=== PATIENT | female | born 1955 | race Asian ===

== ENCOUNTER → 2016-07-27 | Outpatient (CLI) | payer OTHER ==
[~2016-07-27] MED LIST: ALLOPURINOL; HYDROCHLORTHIAZIDE; LIPITOR; LOSARTAN; NORVASC; PREDNISONE
== END | disposition home or self-care (01) ==
LOC: RADMN 08:22
PROVIDERS: ATTEND Internal Medicine Nephrology
DX: N28.89 Other specified disorders of kidney and ureter (principal)
CPT/HCPCS: 74176

== ENCOUNTER 2017-07-22 10:40 | Inpatient (IN) | payer OTHER ==
[~2017-07-22] VITALS: Ht 154.9 cm; Wt 71.4 kg
[2017-07-22] MEDS ORDERED: RANI150T7 PO (10:48)
[2017-07-22] MEDS ORDERED: ACYC200C PO (10:48)
[2017-07-22] MEDS ORDERED: ASPI81 PO (10:48)
[2017-07-22] MEDS ORDERED: AMLO-512 PO (10:48)
[2017-07-22] MEDS ORDERED: PRED5 PO (10:48)
[2017-07-22] MEDS ORDERED: CEPH250 PO (10:48)
[2017-07-22] MEDS ORDERED: LABE100 PO (10:48)
[2017-07-22] MEDS ORDERED: ACETAMINOPHEN 325 MG TABLET PO ONE (11:30)
[2017-07-22 12:04] LABS: APPEARANCE,URINE CLEAR (CLEAR); BILIRUBIN,URINE NEGATIVE (NEGATIVE); GLUCOSE, URINE (UA) 100 mg/dL (NEGATIVE); KETONES,URINE NEGATIVE (NEGATIVE); LEUKOCYTE ESTERASE ,URINE NEGATIVE (NEGATIVE); NITRATE,URINE NEGATIVE (NEGATIVE); OCCULT BLOOD,URINE TRACE (NEGATIVE); PH,URINE 5.5 (5.0-8.0); PROTEIN,URINE SEE CONFIRM (NEGATIVE); UROBILINOGEN,URINE 0.2 mg/dL (<=1.0)
[2017-07-22 12:22] LABS: SULFOSALICYLIC ACID,URINE 3+ (Negative)
[2017-07-22 12:24] LABS: BACTERIA,URINE Rare /HPF (None Seen); MUCUS,URINE Rare LPF (None Seen); RBC,URINE 0-2 /HPF (0-2); SQUAMOUS EPITHELIAL CELL,UR Few /LPF (None Seen); WBC,URINE 0-2 /HPF (0-5)
[2017-07-22 12:25] LABS: HYALINE CASTS, URINE 0-2 /LPF (None Seen)
[2017-07-22] MEDS ORDERED: LEVOFLOXACIN 250 MG TABLET PO ONE (13:30)
[2017-07-22 13:52] LABS: BASOPHILS % (AUTO) 0.9 % (0.0-2.0); EOSINOPHILS % (AUTO) 0.5 % (1.0-6.0); HEMATOCRIT 31.8 % (36-46); HEMOGLOBIN 10.5 g/dL (12.0-16.0); LYMPHOCYTES # (AUTO) 0.9 K/uL (1.0-4.8); LYMPHOCYTES % (AUTO) 9.9 % (22.0-44.0); MEAN CORPUSCULAR HEMOGLOBIN 29.6 pg (26.0-34.0); MEAN CORPUSCULAR HGB CONC 32.9 G/dL (31.0-37.0); MEAN CORPUSCULAR VOLUME 90 fL (80-100); MONOCYTES # (AUTO) 0.1 K/uL (0.1-1.0); MONOCYTES % (AUTO) 1.1 % (2.0-9.0); NEUTROPHILS # (AUTO) 7.9 K/uL (1.8-7.7); PLATELET COUNT (AUTO) 186 K/uL (150-450); RED BLOOD CELL COUNT(AUTO) 3.54 MIL/uL (4.00-5.20); RED CELL DISTRIBUTION WIDTH 14.4 % (11.5-14.5)
[2017-07-22 13:53] LABS: NEUTROPHILS % (AUTO) 87.6 % (40.0-70.0)
[2017-07-22] MEDS ORDERED: CAPSAICIN 0.025% 60 GM CREAM TP ONE (14:15)
[2017-07-22 14:31] LABS: ANION GAP 19 mmol/L (8-16); CALCIUM, TOTAL 8.9 mg/dL (8.8-10.5); CARBON DIOXIDE 15 mmol/L (22-29); CHLORIDE 108 mmol/L (98-107); CREATININE 6.49 mg/dL (0.60-1.30); GLOMERULAR FILTR. RATE CALC 6 mL/min (>60); GLUCOSE,RANDOM 115 mg/dL (70-110); POTASSIUM 5.2 mmol/L (3.5-5.1); SODIUM SERUM 142 mmol/L (136-145); UREA NITROGEN, BLOOD 79 mg/dL (7-18)
[2017-07-22 14:37] LABS: ALANINE AMINOTRANSFERASE 27 U/L (12-78); ALBUMIN 3.4 g/dL (3.4-5.0); ALKALINE PHOSPHATASE 95 U/L (46-116); ASPARTATE AMINOTRANSFERASE < 5 U/L (15-37); BILIRUBIN,TOTAL 0.6 mg/dL (0.1-1.0); TOTAL PROTEIN, SERUM 6.7 g/dL (6.4-8.2)
[2017-07-22] MEDS ORDERED: ACETAMINOPHEN 325 MG TABLET PO PRN (16:30)
[2017-07-22] MEDS ORDERED: 0.9% SODIUM CHLORIDE 10 ML SYRINGE IVP PRN ×2 (16:30→19:30)
[2017-07-22] MEDS ORDERED: ONDANSETRON HCL 4 MG/2 ML VIAL IVP PRN ×2 (16:30→19:30)
[2017-07-22 18:27] VITALS: BP 134/67
[2017-07-22 19:27] VITALS: BP 166/81
[2017-07-22] MEDS ORDERED: BISACODYL 10 MG RECTAL RECTAL SUPPOSITORY PR PRN (19:30)
[2017-07-22] MEDS ORDERED: MAGNESIUM HYDROXIDE SUSPENSION 30 ML UDCUP PO PRN (19:30)
[2017-07-22] MEDS ORDERED: IPRATROPIUM BROMIDE 0.5 MG/2.5 ML NEB SOLUTION NEB PRN (19:30)
[2017-07-22] MEDS ORDERED: ALBUTEROL SULFATE 2.5 MG/0.5 ML NEB SOLUTION NEB PRN (19:30)
[2017-07-22] MEDS ORDERED: BRIM15DR2 OU (19:35)
[2017-07-22] MEDS ORDERED: CALC0.253 PO (19:35)
[2017-07-22] MEDS ORDERED: ATOR20TA65 PO (19:35)
[2017-07-22] MEDS: CALCITRIOL 0.25 MCG CAPSULE PO SCH ×2 (21:00→22:14)
[2017-07-22] MEDS ORDERED: HydrALAZINE HCL 20 MG/ML VIAL IVP PRN (21:00)
[2017-07-22] MEDS ORDERED: [UNRECOGNIZED DRUG - OTHER] CLINICAL ONE (21:30)
[2017-07-22] MEDS: ATORVASTATIN CALCIUM 20 MG TABLET PO SCH (22:10)
[2017-07-22] MEDS: HEPARIN SODIUM,PORCINE 5,000 UNITS/ML VIAL SQ SCH (22:14)
[2017-07-22] MEDS: BRIMONIDINE TARTRATE 0.1% 5 ML OPHTHALMIC SOLUTION OU SCH (22:15)
[2017-07-22] MEDS: ACYCLOVIR 800 MG TABLET PO SCH (22:36)
[2017-07-22 23:44] VITALS: BP 157/70
[2017-07-23 04:21] VITALS: BP 159/75
[2017-07-23 07:03] LABS: BASOPHILS % (AUTO) 0.4 % (0.0-2.0); EOSINOPHILS % (AUTO) 1.4 % (1.0-6.0); LYMPHOCYTES # (AUTO) 1.9 K/uL (1.0-4.8); LYMPHOCYTES % (AUTO) 23.6 % (22.0-44.0); MEAN CORPUSCULAR HGB CONC 33.4 G/dL (31.0-37.0); MEAN CORPUSCULAR VOLUME 90 fL (80-100); MONOCYTES # (AUTO) 0.8 K/uL (0.1-1.0); MONOCYTES % (AUTO) 9.8 % (2.0-9.0); NEUTROPHILS # (AUTO) 5.3 K/uL (1.8-7.7); NEUTROPHILS % (AUTO) 64.8 % (40.0-70.0); PLATELET COUNT (AUTO) 181 K/uL (150-450); RED BLOOD CELL COUNT(AUTO) 3.33 MIL/uL (4.00-5.20); RED CELL DISTRIBUTION WIDTH 14.3 % (11.5-14.5)
[2017-07-23 07:51] LABS: % IRON SATURATION 35.7 % (22-44)
[2017-07-23 07:53] LABS: ALBUMIN 3.2 g/dL (3.4-5.0); BILIRUBIN,TOTAL 0.6 mg/dL (0.1-1.0); CALCIUM, TOTAL 9.2 mg/dL (8.8-10.5); CREATININE 6.64 mg/dL (0.60-1.30); MAGNESIUM 1.9 mg/dL (1.80-2.40); PHOSPHORUS 6.7 mg/dL (2.5-4.9); POTASSIUM 4.1 mmol/L (3.5-5.1); TOTAL PROTEIN, SERUM 6.4 g/dL (6.4-8.2)
[2017-07-23 08:14] VITALS: BP 148/53
[2017-07-23] MEDS: HEPARIN SODIUM,PORCINE 5,000 UNITS/ML VIAL SQ SCH ×2 (09:00→20:24)
[2017-07-23] MEDS ORDERED: LABETALOL HCL 100 MG TABLET PO SCH (09:00)
[2017-07-23] MEDS: ASPIRIN 81 MG CHEWABLE TABLET PO SCH (09:00)
[2017-07-23] MEDS: AmLODIPine BESYLATE 10 MG TABLET PO SCH (10:41)
[2017-07-23] MEDS: ACETAMINOPHEN 325 MG TABLET PO PRN ×2 (10:41→20:24)
[2017-07-23] MEDS: PANTOPRAZOLE SODIUM 40 MG DR TABLET PO SCH (10:41)
[2017-07-23 11:35] VITALS: BP 148/69
[2017-07-23] MEDS ORDERED: OxyCODONE HCL/ACETAMINOPHEN 5-325 MG TABLET PO PRN (11:45)
[2017-07-23] MEDS ORDERED: LABETALOL HCL 100 MG TABLET PO ONE (12:00)
[2017-07-23] MEDS: CALCITRIOL 0.25 MCG CAPSULE PO SCH (12:46)
[2017-07-23] MEDS: PredniSONE 5 MG TABLET PO SCH (12:46)
[2017-07-23] MEDS ORDERED: *CLINICAL-RX DOSING [ENTER DRUG IN COMMENTS] CLINICAL ONE (13:00)
[2017-07-23] MEDS: ACYCLOVIR 800 MG TABLET PO SCH ×2 (13:33→20:23)
[2017-07-23] MEDS: BRIMONIDINE TARTRATE 0.1% 5 ML OPHTHALMIC SOLUTION OU SCH ×2 (13:46→20:23)
[2017-07-23 15:30] VITALS: BP 150/62
[2017-07-23] MEDS: CITRIC ACID/SODIUM CITRATE 30 ML SOLUTION UDCUP PO SCH ×2 (16:12→20:23)
[2017-07-23 20:17] VITALS: BP 155/68
[2017-07-23] MEDS: ATORVASTATIN CALCIUM 20 MG TABLET PO SCH (20:23)
[2017-07-23] MEDS: LABETALOL HCL 100 MG TABLET PO SCH (20:23)
[2017-07-23 23:56] VITALS: BP 145/57
[2017-07-24 05:52] VITALS: BP 158/76
[2017-07-24 07:07] VITALS: BP 149/65
[2017-07-24 07:26] LABS: CREATININE 6.35 mg/dL (0.60-1.30); MAGNESIUM 1.9 mg/dL (1.80-2.40); PHOSPHORUS 6.9 mg/dL (2.5-4.9); POTASSIUM 4.4 mmol/L (3.5-5.1)
[2017-07-24] MEDS: BRIMONIDINE TARTRATE 0.1% 5 ML OPHTHALMIC SOLUTION OU SCH ×2 (09:02→20:19)
[2017-07-24] MEDS: CALCITRIOL 0.25 MCG CAPSULE PO SCH (09:02)
[2017-07-24] MEDS: LABETALOL HCL 100 MG TABLET PO SCH ×2 (09:02→20:19)
[2017-07-24] MEDS: CITRIC ACID/SODIUM CITRATE 30 ML SOLUTION UDCUP PO SCH ×2 (09:02→20:18)
[2017-07-24] MEDS: PANTOPRAZOLE SODIUM 40 MG DR TABLET PO SCH (09:03)
[2017-07-24] MEDS: ASPIRIN 81 MG CHEWABLE TABLET PO SCH (09:03)
[2017-07-24] MEDS: AmLODIPine BESYLATE 10 MG TABLET PO SCH (09:03)
[2017-07-24] MEDS: HEPARIN SODIUM,PORCINE 5,000 UNITS/ML VIAL SQ SCH ×2 (09:03→20:18)
[2017-07-24] MEDS: ACYCLOVIR 800 MG TABLET PO SCH ×2 (09:03→20:19)
[2017-07-24] MEDS: PredniSONE 5 MG TABLET PO SCH (09:04)
[2017-07-24] MEDS: ACETAMINOPHEN 325 MG TABLET PO PRN ×3 (09:04→23:12)
[2017-07-24 11:12] VITALS: BP 146/66
[2017-07-24 15:22] VITALS: BP 141/60
[2017-07-24 15:43] LABS: TPROTEIN TIMED,URINE 216 mg/dL
[2017-07-24 16:17] LABS: CREATININE,SERUM FOR CRCL 6.35 mg/dL (0.60-1.30)
[2017-07-24 16:18] LABS: COLLECTION TIME,URINE 24 HR; TPROTEIN URINE, 24HRS COLL 4104 mg/24Hr (0-165)
[2017-07-24 20:06] VITALS: BP 157/70
[2017-07-24] MEDS: ATORVASTATIN CALCIUM 20 MG TABLET PO SCH (20:19)
[2017-07-25] VITALS (7 sets, daily range): BP systolic 117–166; BP diastolic 44–78
[2017-07-25 07:38] LABS: BASOPHILS % (AUTO) 0.6 % (0.0-2.0); EOSINOPHILS % (AUTO) 3.8 % (1.0-6.0); HEMATOCRIT 32.5 % (36-46); HEMOGLOBIN 10.9 g/dL (12.0-16.0); LYMPHOCYTES # (AUTO) 2.7 K/uL (1.0-4.8); MEAN CORPUSCULAR HEMOGLOBIN 29.7 pg (26.0-34.0); MEAN CORPUSCULAR HGB CONC 33.4 G/dL (31.0-37.0); MEAN CORPUSCULAR VOLUME 89 fL (80-100); MONOCYTES # (AUTO) 0.7 K/uL (0.1-1.0); MONOCYTES % (AUTO) 8.4 % (2.0-9.0); NEUTROPHILS # (AUTO) 4.2 K/uL (1.8-7.7); NEUTROPHILS % (AUTO) 53.2 % (40.0-70.0); PLATELET COUNT (AUTO) 222 K/uL (150-450); RED BLOOD CELL COUNT(AUTO) 3.65 MIL/uL (4.00-5.20); RED CELL DISTRIBUTION WIDTH 14.7 % (11.5-14.5)
[2017-07-25 07:47] LABS: CALCIUM, TOTAL 9.1 mg/dL (8.8-10.5); CREATININE 6.47 mg/dL (0.60-1.30); POTASSIUM 4.3 mmol/L (3.5-5.1)
[2017-07-25 07:52] LABS: MAGNESIUM 1.9 mg/dL (1.80-2.40); PHOSPHORUS 5.7 mg/dL (2.5-4.9)
[2017-07-25] MEDS: ASPIRIN 81 MG CHEWABLE TABLET PO SCH (09:00)
[2017-07-25] MEDS: BRIMONIDINE TARTRATE 0.1% 5 ML OPHTHALMIC SOLUTION OU SCH ×2 (09:13→20:14)
[2017-07-25] MEDS: CITRIC ACID/SODIUM CITRATE 30 ML SOLUTION UDCUP PO SCH ×2 (09:16→20:14)
[2017-07-25] MEDS: PANTOPRAZOLE SODIUM 40 MG DR TABLET PO SCH (09:17)
[2017-07-25] MEDS: AmLODIPine BESYLATE 10 MG TABLET PO SCH (09:17)
[2017-07-25] MEDS: CALCITRIOL 0.25 MCG CAPSULE PO SCH (09:23)
[2017-07-25] MEDS: HEPARIN SODIUM,PORCINE 5,000 UNITS/ML VIAL SQ SCH ×2 (09:23→20:14)
[2017-07-25] MEDS: ACYCLOVIR 800 MG TABLET PO SCH (09:25)
[2017-07-25] MEDS: PredniSONE 5 MG TABLET PO SCH (09:26)
[2017-07-25] MEDS: LABETALOL HCL 100 MG TABLET PO SCH ×2 (09:26→20:15)
[2017-07-25] MEDS ORDERED: ACETAMINOPHEN 325 MG TABLET PO ONE (17:17)
[2017-07-25] MEDS: ATORVASTATIN CALCIUM 20 MG TABLET PO SCH (20:15)
[2017-07-26] VITALS (7 sets, daily range): BP systolic 130–166; BP diastolic 68–93
[2017-07-26] MEDS: ACETAMINOPHEN 325 MG TABLET PO PRN (04:30)
[2017-07-26] MEDS: PredniSONE 5 MG TABLET PO SCH (08:40)
[2017-07-26] MEDS: CALCITRIOL 0.25 MCG CAPSULE PO SCH (08:40)
[2017-07-26] MEDS: PANTOPRAZOLE SODIUM 40 MG DR TABLET PO SCH (08:41)
[2017-07-26] MEDS: ASPIRIN 81 MG CHEWABLE TABLET PO SCH (08:41)
[2017-07-26] MEDS: CITRIC ACID/SODIUM CITRATE 30 ML SOLUTION UDCUP PO SCH ×2 (08:41→20:14)
[2017-07-26] MEDS: BRIMONIDINE TARTRATE 0.1% 5 ML OPHTHALMIC SOLUTION OU SCH ×2 (08:41→20:14)
[2017-07-26] MEDS: AmLODIPine BESYLATE 10 MG TABLET PO SCH (09:00)
[2017-07-26] MEDS: LABETALOL HCL 100 MG TABLET PO SCH ×2 (09:00→20:14)
[2017-07-26] MEDS: ATORVASTATIN CALCIUM 20 MG TABLET PO SCH (20:14)
[2017-07-27] MEDS: ACETAMINOPHEN 325 MG TABLET PO PRN ×3 (03:02→19:57)
[2017-07-27 04:54] VITALS: BP 156/77
[2017-07-27 07:43] VITALS: BP 145/73
[2017-07-27] MEDS: VITAMIN B COMP/VIT C/FOLIC ACID CAPSULE PO SCH (08:41)
[2017-07-27] MEDS: BRIMONIDINE TARTRATE 0.1% 5 ML OPHTHALMIC SOLUTION OU SCH ×2 (08:41→19:56)
[2017-07-27] MEDS: CITRIC ACID/SODIUM CITRATE 30 ML SOLUTION UDCUP PO SCH ×2 (08:41→19:56)
[2017-07-27] MEDS: CALCITRIOL 0.25 MCG CAPSULE PO SCH (08:41)
[2017-07-27] MEDS: LABETALOL HCL 100 MG TABLET PO SCH ×2 (08:41→19:57)
[2017-07-27] MEDS: PredniSONE 5 MG TABLET PO SCH (08:41)
[2017-07-27] MEDS: AmLODIPine BESYLATE 10 MG TABLET PO SCH (08:42)
[2017-07-27] MEDS: ASPIRIN 81 MG CHEWABLE TABLET PO SCH (08:42)
[2017-07-27] MEDS: PANTOPRAZOLE SODIUM 40 MG DR TABLET PO SCH (08:42)
[2017-07-27 11:05] VITALS: BP 157/72
[2017-07-27 15:39] VITALS: BP 147/70
[2017-07-27 19:28] VITALS: BP 154/77
[2017-07-27] MEDS: ATORVASTATIN CALCIUM 20 MG TABLET PO SCH (19:56)
[2017-07-27 23:55] VITALS: BP 150/63
[2017-07-28 04:49] VITALS: BP 147/72
[2017-07-28] MEDS: ACETAMINOPHEN 325 MG TABLET PO PRN (04:53)
[2017-07-28 07:17] VITALS: BP 149/73
[2017-07-28] MEDS: BRIMONIDINE TARTRATE 0.1% 5 ML OPHTHALMIC SOLUTION OU SCH (08:25)
[2017-07-28] MEDS: PANTOPRAZOLE SODIUM 40 MG DR TABLET PO SCH (08:25)
[2017-07-28] MEDS: ASPIRIN 81 MG CHEWABLE TABLET PO SCH (08:26)
[2017-07-28] MEDS: CITRIC ACID/SODIUM CITRATE 30 ML SOLUTION UDCUP PO SCH (08:26)
[2017-07-28] MEDS ORDERED: SODIUM CHLORIDE 0.9% 2,000 ML IV ONE (10:55)
[2017-07-28 11:13] VITALS: BP 151/71
[2017-07-28 15:40] VITALS: BP 155/74
[2017-07-28] MEDS: PredniSONE 5 MG TABLET PO SCH (16:04)
[2017-07-28] MEDS: CALCITRIOL 0.25 MCG CAPSULE PO SCH (16:04)
[2017-07-28] MEDS: VITAMIN B COMP/VIT C/FOLIC ACID CAPSULE PO SCH (16:04)
[2017-07-28] MEDS: AmLODIPine BESYLATE 10 MG TABLET PO SCH (16:04)
[2017-07-28] MEDS: LABETALOL HCL 100 MG TABLET PO SCH (16:05)
[2017-07-28 17:30] VITALS: BP 142/72
[2017-07-28] MEDS ORDERED: LIDOCAINE HCL/PF 1% 2 ML VIAL IM ONE (18:18)
== END 2017-07-28 19:00 | disposition home or self-care (01) | DRG 469 ==
LOC: EMS 10:41 → 5S 17:06 → 5N 22:45
PROVIDERS: ADMIT Internal Medicine; ATTEND Internal Medicine
PROC: 5A1D70Z Performance of Urinary Filtration, Intermittent, Less than 6 Hours Per Day (ICD-10-PCS; principal; 2017-07-26)
PROC: 5A1D70Z Performance of Urinary Filtration, Intermittent, Less than 6 Hours Per Day (ICD-10-PCS; 2017-07-28)
DX: N17.9 Acute kidney failure, unspecified (principal); C41.2 Malignant neoplasm of vertebral column; E87.2 Acidosis; I12.0 Hypertensive chronic kidney disease with stage 5 chronic kidney disease or end stage renal disease; B02.9 Zoster without complications; E87.5 Hyperkalemia; N18.6 End stage renal disease; D63.1 Anemia in chronic kidney disease; E21.3 Hyperparathyroidism, unspecified; E78.00 Pure hypercholesterolemia, unspecified; N31.9 Neuromuscular dysfunction of bladder, unspecified; Z90.5 Acquired absence of kidney; Z85.528 Personal history of other malignant neoplasm of kidney; Z99.2 Dependence on renal dialysis; Z87.440 Personal history of urinary (tract) infections
CPT/HCPCS: 74176; 76817; 81050; 82575; 82728; 83540; 83550; 83735; 83970; 84100; 84145; 84156; 87340; 93005; 99285; J0360; J1644; J3490; J7030